=== PATIENT | male | born 1985 | race Caucasian/White ===

== ENCOUNTER 2024-12-23 18:37 | Emergency (ER) | payer SELFPAY ==
[2024-12-23] MEDS ORDERED: Ketorolac Tromethamine 30 MG (1 mL) VIAL ONE (20:18)
[2024-12-23] MEDS ORDERED: Dexamethasone 10 MG/ML VIAL ONE (20:19)
== END 2024-12-23 20:41 | disposition home or self-care (01) ==
LOC: ERS 18:37
DX: M54.12 Radiculopathy, cervical region (principal); F17.290 Nicotine dependence, other tobacco product, uncomplicated
CPT/HCPCS: 99283; J1100; J1885

== ENCOUNTER 2025-01-26 15:46 | Emergency (ER) | payer SELFPAY ==
[2025-01-26] MEDS ORDERED: Buprenorphine 8mg/Naloxone 2mg per 1 FILM ONE ×2 (19:24→19:53)
[2025-01-26] MEDS ORDERED: Metoclopramide HCl 10 MG (2 mL) VIAL ONE ×2 (20:39→20:41)
[2025-01-26] MEDS ORDERED: diphenhydrAMINE 25 MG CAP ONE (21:26)
[2025-01-27] MEDS ORDERED: Buprenorphine 8mg/Naloxone 2mg per 1 FILM ONE (00:18)
== END 2025-01-27 02:38 | disposition home or self-care (01) ==
LOC: ERS 15:46
DX: F11.23 Opioid dependence with withdrawal (principal); T40.3X6A Underdosing of methadone, initial encounter; F17.290 Nicotine dependence, other tobacco product, uncomplicated; Z91.148 Patient's other noncompliance with medication regimen for other reason
CPT/HCPCS: 96372; 96374; 96375; J0571; J2060; J2765

== ENCOUNTER 2025-01-27 11:49 | Emergency (ER) | payer SELFPAY ==
[2025-01-27 14:13] LABS: #Basophils 0.03 10x3/uL (0.0-0.2); #Eosinophils Less than 0.03 10x3/uL (0.0-0.7); #Monocytes 0.60 10x3/uL (0.11-0.59); #Neutrophils 5.87 10x3/uL (1.40-6.50); %Basophils 0.4 % (0.0-1.0); %Eosinophils 0.0 % (0.0-10.0); %Lymphocytes 15.0 % (21.0-51.0); %Monocytes 7.8 % (0.0-10.0); %Neutrophils 76.5 % (42.0-75.0); Hematocrit 40.2 % (42.0-52.0); Hemoglobin 12.4 g/dL (14.0-18.0); Mean Corpuscular Hemoglobin 24.2 pg (27.0-31.0); Mean Corpuscular Volume 78.5 fL (78.0-98.0); Platelet Count 279 10x3/uL (130-400); Red Blood Cell (RBC) Count 5.12 mill/uL (4.70-6.10); White Blood Cell (WBC) Count 7.67 10x3/uL (4.8-10.8)
[2025-01-27 14:24] LABS: ALT (SGPT) 14 U/L (Less than 45); AST (SGOT) 24 U/L (11-34); Albumin 4.8 g/dL (3.1-4.5); Alkaline Phosphatase 103 U/L (40-110); Anion Gap 15 mmol/L (10-20); BUN (Urea Nitrogen) 8 mg/dL (8.9-20.6); Bilirubin, Total 0.4 mg/dL (0.3-1.2); Calc. Creatinine Clearance 0 mL/min (70-130); Calcium 9.7 mg/dL (7.8-10.44); Carbon Dioxide 23 mmol/L (22-29); Chloride 109 mmol/L (98-107); Globulin 3.6 g/dL (2.4-3.5); Glucose 99 mg/dL (70-105); Potassium 3.5 mmol/L (3.5-5.1); Sodium 143 mmol/L (136-145)
== END 2025-01-27 17:11 | disposition home or self-care (01) ==
LOC: ERS 11:49
DX: F11.23 Opioid dependence with withdrawal (principal); K21.9 Gastro-esophageal reflux disease without esophagitis; Z87.891 Personal history of nicotine dependence
CPT/HCPCS: 36415; 80053; 85025; 93005; 99284

== ENCOUNTER 2025-01-28 09:10 | Emergency (ER) | payer SELFPAY | END 2025-01-28 11:00 | disposition home or self-care (01) | LOC: ERS 09:10 | DX: F11.90 Opioid use, unspecified, uncomplicated (principal); Z76.0 Encounter for issue of repeat prescription; Z87.891 Personal history of nicotine dependence | CPT/HCPCS: 99283 ==